=== PATIENT | female | born 1985 | race Caucasian/White ===

== ENCOUNTER 2017-04-25 17:27 | Emergency (ER) | payer MEDICAID ==
[2017-04-25] MEDS: ACETAMINOPHEN 325 MG TAB PO (21:23)
[2017-04-25] MEDS: DIPHTH/TET/ACEL PERTUSS (ADULT) 0.5 ML VIAL IM* (21:23)
== END 2017-04-25 23:14 | disposition home or self-care (01) ==
LOC: E/R 17:27
DX: S00.81XA Abrasion of other part of head, initial encounter (principal); R51 Headache; W25.XXXA Contact with sharp glass, initial encounter; Y92.9 Unspecified place or not applicable; Z23 Encounter for immunization
CPT/HCPCS: 70450; 70486; 72125; 90471; 90715; 99285-25